=== PATIENT | female | born 2000 | race Caucasian/White ===

== ENCOUNTER 2018-07-18 22:32 | Emergency (ER) | payer OTHER ==
[~2018-07-18] VITALS: Ht 165.1 cm; Wt 59.0 kg
[~2018-07-18 22:32] MED LIST: LORTAB 7.5/5001 TA1 PO; NOHOMEMEDICATIONS; NORCO 5-325 TA1 EACH PO; TORADOL 10 MG T10 MG PO; TRAMADOL 50 MG50 MG PO; UNICOMPLEX M TA1 TA1 PO; ZOFRAN ODT4 MG PO
[2018-07-18] MEDS ORDERED: CIPRO500 MG PO (22:45)
[2018-07-18 23:26] LABS: HEMATOCRIT 34.7 % (37.0-47.0); HEMOGLOBIN 11.5 gm/dL (12.0-15.0); MCH 27.3 pg (26.0-34.0); MCHC 33.1 g/dL (28.0-37.0); MCV 82.5 fL (80.0-100.0); MPV 9.1 fl. (7.2-11.1); NUCLEATED RBCS 0 /100WBC; PLATELET COUNT* 183 thou/uL (150-400); RBC 4.21 mil/uL (4.20-5.00); RDW-CV 15.4 % (10.5-14.5); WBC 19.9 thou/uL (4.0-11.0)
[2018-07-18 23:33] LABS: CALCIUM 8.4 mg/dL (8.5-10.1); CREATININE 1.1 mg/dL (0.6-1.3); POTASSIUM 3.3 mmol/L (3.5-5.1)
[2018-07-18 23:50] LABS: ALBUMIN 3.4 g/dL (3.4-5.0); TOTAL BILIRUBIN 0.6 mg/dL (<0.1-1.0); TOTAL PROTEIN 7.8 g/dL (6.4-8.2)
[2018-07-19 00:22] LABS: ABSOLUTE LYMPHOCYTES 1.4 thou/uL (0.8-5.3); ABSOLUTE MONOCYTES 1.4 thou/uL (0.0-1.2); ABSOLUTE NEUTROPHILS 17.1 thou/uL (1.6-8.1)
[2018-07-19 00:23] LABS: PLATELET ESTIMATE ADEQUATE
[2018-07-19 00:29] LABS: INFLUENZA A ANTIGEN None Detected (None Detect); INFLUENZA B ANTIGEN None Detected (None Detect)
[2018-07-19 00:54] LABS: CSF GLUCOSE 57 mg/dl (40-70); CSF PROTEIN 20.2 mg/dl (15-45)
[2018-07-19 01:08] LABS: URINE BLOOD TRACE (Negative); URINE CLARITY CLEAR; URINE COLOR YELLOW; URINE GLUCOSE-RANDOM NEGATIVE (Negative); URINE KETONES 1+ (Negative); URINE LEUKOCYTES-REFLEX NEGATIVE (Negative); URINE NITRITE-REFLEX NEGATIVE (Negative); URINE PROTEIN 1+ (Negative); URINE SPECIFIC GRAVITY >= 1.030 (1.005-1.030); URINE UROBILINOGEN 0.2 E.U./dl (0.2-1.0)
[2018-07-19 01:12] LABS: CSF CLARITY CLEAR; CSF COLOR COLORLESS; VOLUME 11 ml
[2018-07-19 01:19] LABS: URINE BILIRUBIN 1+ (Negative)
[2018-07-19 01:21] LABS: ICTOTEST (BILI CONFIRMATORY) Negative (Negative)
[2018-07-19 01:48] LABS: CSF RBC 2 /mm3; CSF WBC 3 /mm3 (0-10)
[2018-07-19] MEDS ORDERED: HYDROCODONE-ACE15 ML PO (02:07)
[2018-07-19] MEDS ORDERED: KEFLEX500 M1 PO (02:07)
[2018-07-19 02:20] VITALS: BP 103/55
== END 2018-07-19 02:23 | disposition home or self-care (01) ==
LOC: M.ERS 22:32
PROVIDERS: Emergency Medicine; Nurse Practitioner Family
DX: J02.0 Streptococcal pharyngitis (principal); R11.2 Nausea with vomiting, unspecified; M54.5 Low back pain; M54.6 Pain in thoracic spine; Z88.1 Allergy status to other antibiotic agents

== ENCOUNTER 2018-07-20 14:42 | Emergency (ER) | payer OTHER ==
[~2018-07-20] VITALS: Ht 165.1 cm; Wt 55.3 kg
[~2018-07-20 14:42] MED LIST changes: +CIPRO500 MG PO; +HYDROCODONE-ACE15 ML PO; +KEFLEX500 M1 PO
[2018-07-20 15:48] LABS: ABSOLUTE EOSINOPHILS 0.1 thou/uL (0.0-0.7); ABSOLUTE LYMPHOCYTES 1.2 thou/uL (0.8-5.3); ABSOLUTE MONOCYTES 0.7 thou/uL (0.0-1.2); ABSOLUTE NEUTROPHILS 5.2 thou/uL (1.6-8.1); BASOPHILS 0.4 %; EOSINOPHILS 0.7 %; HEMATOCRIT 31.8 % (37.0-47.0); HEMOGLOBIN 10.6 gm/dL (12.0-15.0); LYMPHOCYTES 16.8 %; MCH 27.8 pg (26.0-34.0); MCHC 33.3 g/dL (28.0-37.0); MCV 83.3 fL (80.0-100.0); MONOCYTES 9.2 %; MPV 8.7 fl. (7.2-11.1); NUCLEATED RBCS 0 /100WBC; PLATELET COUNT* 176 thou/uL (150-400); POLYS 72.9 %; RBC 3.81 mil/uL (4.20-5.00); RDW-CV 16.2 % (10.5-14.5); WBC 7.1 thou/uL (4.0-11.0)
[2018-07-20 15:56] LABS: CALCIUM 8.4 mg/dL (8.5-10.1); CREATININE 0.9 mg/dL (0.6-1.3); POTASSIUM 3.2 mmol/L (3.5-5.1)
[2018-07-20 16:00] LABS: TOTAL BILIRUBIN 0.2 mg/dL (<0.1-1.0); TOTAL PROTEIN 7.4 g/dL (6.4-8.2)
[2018-07-20 17:05] VITALS: BP 108/57
== END 2018-07-20 17:08 | disposition home or self-care (01) ==
LOC: M.ERS 14:42
PROVIDERS: Family Medicine
DX: G97.1 Other reaction to spinal and lumbar puncture (principal); Z88.1 Allergy status to other antibiotic agents

== ENCOUNTER 2018-07-22 18:37 | Inpatient (IN) | payer BC, OTHER ==
[~2018-07-22] VITALS: Ht 165.1 cm; Wt 55.3 kg
[2018-07-22 18:40] VITALS: BP 122/72
[2018-07-22 20:05] LABS: ABSOLUTE EOSINOPHILS 0.1 thou/uL (0.0-0.7); ABSOLUTE LYMPHOCYTES 2.9 thou/uL (0.8-5.3); ABSOLUTE MONOCYTES 0.7 thou/uL (0.0-1.2); ABSOLUTE NEUTROPHILS 2.7 thou/uL (1.6-8.1); BASOPHILS 0.7 %; EOSINOPHILS 1.6 %; HEMATOCRIT 34.6 % (37.0-47.0); HEMOGLOBIN 11.5 gm/dL (12.0-15.0); LYMPHOCYTES 45.1 %; MCH 27.3 pg (26.0-34.0); MCHC 33.3 g/dL (28.0-37.0); MCV 82.1 fL (80.0-100.0); MONOCYTES 10.5 %; MPV 9.3 fl. (7.2-11.1); NUCLEATED RBCS 0 /100WBC; POLYS 42.1 %; RBC 4.21 mil/uL (4.20-5.00); RDW-CV 15.7 % (10.5-14.5); WBC 6.4 thou/uL (4.0-11.0)
[2018-07-22 20:08] LABS: CALCIUM 8.9 mg/dL (8.5-10.1); CREATININE 0.9 mg/dL (0.6-1.3); PLATELET COUNT* 267 thou/uL (150-400); POTASSIUM 3.2 mmol/L (3.5-5.1)
[2018-07-22 20:13] LABS: ALBUMIN 3.3 g/dL (3.4-5.0); TOTAL BILIRUBIN 0.2 mg/dL (<0.1-1.0)
[2018-07-22 21:23] LABS: URINE BILIRUBIN NEGATIVE (Negative); URINE BLOOD TRACE (Negative); URINE CLARITY CLEAR; URINE COLOR YELLOW; URINE GLUCOSE-RANDOM NEGATIVE (Negative); URINE KETONES NEGATIVE (Negative); URINE LEUKOCYTES-REFLEX NEGATIVE (Negative); URINE NITRITE-REFLEX NEGATIVE (Negative); URINE PROTEIN NEGATIVE (Negative); URINE UROBILINOGEN 0.2 E.U./dl (0.2-1.0)
[2018-07-22 21:50] LABS: INR 1.1; PROTIME 11.3 Seconds (9.20-11.50)
[2018-07-23 00:11] VITALS: BP 105/64
[2018-07-23 01:08] VITALS: BP 107/64
[2018-07-23 07:50] VITALS: BP 101/61
[2018-07-23 09:56] LABS: AMP/METHAMP Negative (Negative); BARBITURATES Negative (Negative); BENZODIAZEPINES Negative (Negative); COCAINE Negative (Negative); METHADONE Negative (Negative); OPIATES Negative (Negative); PCP Negative (Negative); THC Negative (Negative)
[2018-07-23 10:07] LABS: CALCIUM 8.4 mg/dL (8.5-10.1); CREATININE 0.9 mg/dL (0.6-1.3); MAGNESIUM 1.8 mg/dL (1.8-2.4); POTASSIUM 3.9 mmol/L (3.5-5.1)
[2018-07-23 17:03] VITALS: BP 113/76
--- NOTE | 2018-07-23 19:34 | CON ---
[address] [address] CONSULTATION Name: LUIS ALFREDO GREGG Room: [address] IN M.R.#: [id number] Admission: 07/22/18 Attend Phys: Darell Ellis MD Discharge: Date of : 89 Report #: [id number] THIS REPORT FOR: //name// CC: Darell Quintanilla DATE OF SERVICE: 07/23/2018 HISTORY OF PRESENT ILLNESS: This is a 17-year-old female patient who was evaluated by me for headache. I talked to the Emergency Room physician who saw this patient. She underwent a spinal tap, which was normal. Then, she had a blood patch because of what looks like postural headache. That gave her pretty significant relief for about 24 hours, but then the symptom came back. The headache is present most of the time, but it is markedly worse when she tries to stand up. She described the headache is very severe when she tries to stand up or sit up. 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 She indicates that she will have spells where she will have some tremulousness and then she will start getting weak in all 4 extremities. She will lose strength and many times she will pass out. She has not had any spell like that for a couple of years. She denies any stress. She said she works. She works as a office clerk assistant. When she came in, apparently she had significant left-sided weakness. It was in the left arm and the left leg. She had also tingling and numbness in the leg. She is having a lot of pain in the location where LP was done. She indicates she had strep infection and she is taking Cipro, and this is the fifth day. I reviewed all the records in the computer and she had a spinal tap that was unremarkable. This was her relevant 14-point review of systems which was carried out. PAST MEDICAL HISTORY: Positive for what she described as basilar migraine. FAMILY HISTORY: Negative for early age stroke. 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 Her last period was last Tuesday. It was normal. Her blood test when she came to Emergency Room was negative. PHYSICAL EXAMINATION: Indicates that this patient is alert, responsive, able to follow simple and complex commands. Her speech, concentration, fund of knowledge and memory is at her baseline. Cranial nerve examination 2-12 looks unremarkable. She has symmetrical strength, sensation, reflexes and tone in all 4 extremities. There is no cerebellar sign. There is no carotid bruit. She is still complaining of weakness on the left side, but when she gives an effort the difference is not that much, but her effort is not always good. [place] [address] CONSULTATION Name: LUIS ALFREDO GREGG Room: [address] IN .R.#: [id number] Admission: 07/22/18 Attend Phys: Darell Ellis MD Discharge: Date of : 89 Report #: [id number] her walk, but she said she has been able to walk. Cardiac examination is unremarkable. No respiratory difficulty was noticed. IMPRESSION: This patient's clinical presentation is consistent with post-spinal headache. She had weakness on the left side and that may be part of her basilar migraine since CT angiogram of the head and neck was normal. I had talked to the Emergency Room physician physicians and asked them to exclude any in this patient and looks like they have done a test on her and she had a normal periods making that one unlikely. She had weakness on the left side and that may be better and probably part of her migraine. Continuation of the headache is difficult. I have put a call to the hospitalist and we will discuss the patient with him. I discussed with the patient that we have difficulty here because no pain management come here. We may have to consult Anesthesia again and see what will they like to do as far as the blood patch is concerned. I will go ahead and do an MRI of the brain and lumbar spine in this patient to see if there is any pathology there, but I suspect most likely cause is still post-spinal headache and I see no evidence of meningitis. Thank you very much for this referral and if you have any question, please feel free to contact me. <ELECTRONICALLY SIGNED> By: Nam Horvath MD 07/23/18 [id number] Horvath MD /nt
[2018-07-23 20:00] VITALS: BP 101/62
[2018-07-24 04:21] LABS: ABSOLUTE EOSINOPHILS 0.1 thou/uL (0.0-0.7); ABSOLUTE LYMPHOCYTES 2.2 thou/uL (0.8-5.3); ABSOLUTE MONOCYTES 0.4 thou/uL (0.0-1.2); ABSOLUTE NEUTROPHILS 1.1 thou/uL (1.6-8.1); BASOPHILS 1.1 %; HEMATOCRIT 28.9 % (37.0-47.0); LYMPHOCYTES 56.7 %; MCH 27.5 pg (26.0-34.0); MCHC 32.9 g/dL (28.0-37.0); MCV 83.6 fL (80.0-100.0); MONOCYTES 11.4 %; MPV 9.6 fl. (7.2-11.1); NUCLEATED RBCS 0 /100WBC; PLATELET COUNT* 193 thou/uL (150-400); POLYS 28.8 %; RBC 3.46 mil/uL (4.20-5.00); RDW-CV 15.6 % (10.5-14.5); WBC 3.9 thou/uL (4.0-11.0)
[2018-07-24 04:27] LABS: HEMOGLOBIN 9.5 gm/dL (12.0-15.0)
[2018-07-24 04:29] LABS: CALCIUM 8.1 mg/dL (8.5-10.1); CREATININE 0.8 mg/dL (0.6-1.3); POTASSIUM 3.9 mmol/L (3.5-5.1)
[2018-07-24 07:45] VITALS: BP 98/55
[2018-07-24 16:00] VITALS: BP 117/68
[2018-07-24 20:15] VITALS: BP 97/52
[2018-07-25 04:23] LABS: ABSOLUTE EOSINOPHILS 0.2 thou/uL (0.0-0.7); ABSOLUTE LYMPHOCYTES 1.5 thou/uL (0.8-5.3); ABSOLUTE MONOCYTES 0.5 thou/uL (0.0-1.2); ABSOLUTE NEUTROPHILS 4.1 thou/uL (1.6-8.1); BASOPHILS 0.5 %; EOSINOPHILS 2.4 %; HEMATOCRIT 30.9 % (37.0-47.0); HEMOGLOBIN 10.2 gm/dL (12.0-15.0); LYMPHOCYTES 23.6 %; MCH 27.7 pg (26.0-34.0); MCHC 32.9 g/dL (28.0-37.0); MONOCYTES 8.6 %; MPV 9.6 fl. (7.2-11.1); NUCLEATED RBCS 0 /100WBC; PLATELET COUNT* 199 thou/uL (150-400); POLYS 64.9 %; RBC 3.68 mil/uL (4.20-5.00); RDW-CV 15.4 % (10.5-14.5); WBC 6.4 thou/uL (4.0-11.0)
[2018-07-25 04:36] LABS: ALBUMIN 2.9 g/dL (3.4-5.0); CALCIUM 8.3 mg/dL (8.5-10.1); CREATININE 0.9 mg/dL (0.6-1.3); MAGNESIUM 1.7 mg/dL (1.8-2.4); POTASSIUM 4.3 mmol/L (3.5-5.1); TOTAL BILIRUBIN 0.3 mg/dL (<0.1-1.0); TOTAL PROTEIN 6.2 g/dL (6.4-8.2)
[2018-07-25 06:49] LABS: ESR (SEDRATE) 20 mm/hr (0-20)
[2018-07-25 08:00] VITALS: BP 117/58
== END 2018-07-25 16:17 | disposition short-term general hospital (02) | DRG 92 ==
LOC: M.ERS 18:37 → M.TBA-ER 23:34 → M.3W 23:34
PROVIDERS: Internal Medicine; Personal Emergency Response Attendant; ADMIT Internal Medicine
DX: G96.0 Cerebrospinal fluid leak (principal); E44.1 Mild protein-calorie malnutrition; G43.909 Migraine, unspecified, not intractable, without status migrainosus; E88.09 Other disorders of plasma-protein metabolism, not elsewhere classified; H93.19 Tinnitus, unspecified ear; J02.9 Acute pharyngitis, unspecified; Z79.899 Other long term (current) drug therapy; Z68.20 Body mass index [BMI] 20.0-20.9, adult; Z88.1 Allergy status to other antibiotic agents

== ENCOUNTER 2021-07-14 10:52 | Emergency (ER) | payer OTHER ==
[~2021-07-14] VITALS: Ht 165.1 cm; Wt 74.8 kg
[2021-07-14] MEDS ORDERED: LEXAPRO 10 MG T10 M2 PO (11:22)
[2021-07-14 12:06] LABS: ABSOLUTE BASOPHILS 0.1 thou/uL (0.0-0.2); ABSOLUTE EOSINOPHILS 0.1 thou/uL (0.0-0.7); ABSOLUTE LYMPHOCYTES 1.8 thou/uL (0.8-5.3); ABSOLUTE MONOCYTES 0.5 thou/uL (0.0-1.2); ABSOLUTE NEUTROPHILS 3.9 thou/uL (1.6-8.1); BASOPHILS 1.2 %; EOSINOPHILS 1.1 %; HEMATOCRIT 41.1 % (37.0-47.0); HEMOGLOBIN 13.9 gm/dL (12.0-15.0); LYMPHOCYTES 27.8 %; MCH 29.9 pg (26.0-34.0); MCHC 33.8 g/dL (28.0-37.0); MCV 88.5 fL (80.0-100.0); MONOCYTES 8.4 %; MPV 8.7 fl. (7.2-11.1); NUCLEATED RBCS 0 /100WBC; PLATELET COUNT* 333 thou/uL (150-400); POLYS 61.5 %; RBC 4.64 mil/uL (4.20-5.00); RDW-CV 12.4 % (10.5-14.5); WBC 6.3 thou/uL (4.0-11.0)
[2021-07-14 12:30] LABS: CALCIUM 9.3 mg/dL (8.5-10.1); POTASSIUM 3.9 mmol/L (3.5-5.1)
[2021-07-14 12:34] LABS: ALBUMIN 3.9 g/dL (3.4-5.0); TOTAL BILIRUBIN 0.4 mg/dL (<0.1-1.0); TOTAL PROTEIN 8.5 g/dL (6.4-8.2)
[2021-07-14 13:17] LABS: ESR (SEDRATE) 20 mm/hr (0-20)
[2021-07-14 17:13] VITALS: BP 103/54
== END 2021-07-14 17:15 | disposition home or self-care (01) ==
LOC: M.ERS 10:52
PROVIDERS: Family Medicine
DX: R53.1 Weakness (principal); Z20.822 Contact with and (suspected) exposure to COVID-19; G43.909 Migraine, unspecified, not intractable, without status migrainosus; Z79.899 Other long term (current) drug therapy; Z88.0 Allergy status to penicillin